=== PATIENT | male | born 1930 | race Caucasian/White ===

== ENCOUNTER → 2017-02-09 | Outpatient (CLI) | payer MEDICARE ==
[2017-02-09 08:06] LABS: BASOPHILS % (AUTO) 1 % (0-2); EOSINOPHILS # (AUTO) 0.4 10^3uL; EOSINOPHILS % (AUTO) 8 % (0-4); LYMPHOCYTES # (AUTO) 0.6 X10^3; MEAN CORPUSCULAR HEMOGLOBIN 29.7 PG (26.0-34.0); MEAN CORPUSCULAR VOLUME 87 FL (80-100); MEAN PLATELET VOLUME 9.4 FL (6.0-9.5); MONOCYTES # (AUTO) 0.6 X10^3; MONOCYTES % (AUTO) 13 % (3-11); NEUTROPHILS # (AUTO) 3.2 X10^3; NEUTROPHILS % (AUTO) 65 % (51-67); PLATELET COUNT 237 10^3uL (150-450); WHITE BLOOD COUNT 4.91 10^3uL (4.0-11.0)
[2017-02-09 08:21] LABS: ALBUMIN 4.1 g/dL (3.4-5.0); ANION GAP 15.7 MEQ/L (3-15); TOTAL PROTEIN 7.3 g/dL (6.4-8.5)
== END ==
LOC: LAB 07:50
PROVIDERS: ATTEND Internal Medicine Hematology & Oncology
DX: C21.8 Malignant neoplasm of overlapping sites of rectum, anus and anal canal (principal)
CPT/HCPCS: 36415; 80053; 82378; 85025

== ENCOUNTER → 2017-02-11 | Outpatient (CLI) | payer MEDICARE ==
--- NOTE | 2017-02-11 11:05 | Diagnostic Imaging Report ---
PROCEDURE: CT chest pelvis with and abdomen with and without contrast. TECHNIQUE: Multiple contiguous axial images were obtained through the chest, abdomen and pelvis after uneventful bolus administration of intravenous contrast. Precontrast acquisitions were acquired through the abdomen. INDICATION: Rectal cancer. Comparison is made to study of 08/21/2016. CT chest: Similar to the previous study, there are occasional subpleural nodules. Some contain calcification. There is also mild calcific pleural plaquing bilaterally. Findings have not changed. There is no evidence of new mass or infiltrate. There is no significant pleural or pericardial fluid. Osseous structures are stable. 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 There is no evidence of fluid collection or adverse change. IMPRESSION: Subpleural nodular densities in both lungs may be the result of previous granulomatous exposure. There is no evidence of infiltrate or new mass. No pathologic adenopathy is seen in the thorax. 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 CT abdomen and pelvis: Low-density throughout the liver has a stable appearance. Numerous gallstones are noted. There is no evidence of focal hepatic or splenic lesion. There are also numerous pancreatic calcifications without evidence of pancreatic mass or significant change when compared to the previous examination. Moderate aortoiliac atherosclerotic calcifications are noted. No adrenal gland or renal lesion is detected. Small nonobstructing bilateral renal calculi are unchanged. There is no evidence of free fluid in the abdomen or pelvis. No pathologic adenopathy is identified. Partially opacified urinary bladder is unremarkable although images of the pelvis is somewhat degraded by metallic artifact from bilateral hip prostheses. There is a small umbilical herniation containing fat. IMPRESSION: Hepatic steatosis and cholelithiasis. Otherwise, no acute abnormality or change is identified. Dictated by: Dictated on workstation # [id number]
== END ==
LOC: RAD 09:20
PROVIDERS: ATTEND Internal Medicine Hematology & Oncology
DX: C21.8 Malignant neoplasm of overlapping sites of rectum, anus and anal canal (principal); K76.0 Fatty (change of) liver, not elsewhere classified; K80.20 Calculus of gallbladder without cholecystitis without obstruction
CPT/HCPCS: 71260; 74178; Q9967